=== PATIENT | female | born 1935 | race Caucasian/White ===

== ENCOUNTER 2018-05-13 15:07 | Inpatient (IN) | payer MEDICARE ==
[~2018-05-13] VITALS: Ht 160 cm; Wt 61.3 kg
--- NOTE | ~2018-05-13 | EKG ---
[address] [address] ELECTROCARDIOGRAM REPORT Name: LETY GAY Room #: 451-P ADM IN M.R.#: [id number] Admission: 05/13/18 Attend Phys: Aleksandar Fajardo MD Discharge: Date of : 33 Report #: [id number] THIS REPORT FOR: //name// [facility] Test Date: 2018-05-14 Test Time: 09:37:32 Pat Name: LETY GAY Department: Room: [facility] Gender: F [place]: [place] : 1935 Requested By: Geoff Pan Order Number: [id number] MD: Jarrod Quintanilla Measurements Intervals [place] Rate: 76 P: 52 NM: 222 QRS: 28 QRSD: 91 T: 64 QT: 378 QTc: 426 Interpretive Statements Sinus rhythm Prolonged NM interval Consider left ventricular hypertrophy Anterior Q waves, possibly due to LVH Compared to ECG 12/07/2009 07:43:03 First degree AV block now present Q waves now present Atrial premature complex(es) no longer present Myocardial infarct finding no longer present Electronically Signed On 05-14-2018 20:44:03 WIENER PACKER by Jarrod Quintanilla [email or web address] <ELECTRONICALLY SIGNED> By: Jarrod Quintanilla MD 05/14/184 6 6 Jarrod Quintanilla MD /EPI
--- NOTE | ~2018-05-13 | 2DMMODE ---
[facility] [address] [place] [address] 2 D/M-MODE ECHOCARDIOGRAM Name: LETY GAY Room #: 451-P ADM IN ..#: [id number] Admission: 05/13/18 Attend Phys: Aleksandar Fajardo MD Discharge: Date of : 33 Date of Service: 05/15/18 1256 Report #: [id number] THIS REPORT FOR: //name// APPROVED REPORT Study performed: 05/15/2018 07:44:46 EXAM: Comprehensive 2D, Doppler, and color-flow Echocardiogram Patient Location: Bedside Room #: [facility] Status: routine BSA: 1.64 HR: 72 bpm BP: 113/56 mmHg Rhythm: NSR Other Information Study Quality: Adequate Indications Systolic murmur. 2D Dimensions RVDd: 33.74 mm IVSd: 9.89 (7-11mm) LVOT Diam: 20.82 (18-24mm) LVDd: 46.25 mm PWd: 8.24 (7-11mm) Ascending Ao: 38.65 (22-36mm) LVDs: 28.84 (25-40mm) Aortic Root: 33.71 mm Volumes Left Atrial Volume (Systole) Single Plane 4CH: 51.10 mL Single Plane 2CH: 46.69 mL LA ESV Index: 32.00 mL/m2 Aortic Valve AoV Peak Kareem.: 3.16 m/s AO Peak Gr.: 39.89 mmHg LVOT Max P.09 mmHg AO Mean Gr.: 22.11 mmHg AO V2 Mean: 2.24 m/s LVOT Max V: 1.01 m/s AO V2 VTI: 69.14 cm KATT Vmax: 1.09 cm2 Mitral Valve E/A Ratio: 0.8 [facility] [place] [address] 2 D/M-MODE ECHOCARDIOGRAM Name: GAYLETY Hodgson Room #: [address] [place] [address] [place] ..#: [id number] Admission: 05/13/18 Attend Phys: Aleksandar Fajardo MD Discharge: Date of : 33 Date of Service: 05/15/18 1256 Report #: [id number] MV Decel. Time: 223.94 ms MV E Max Kareem.: 0.80 m/s MV A Kareem.: 1.00 m/s MV PHT: 64.94 ms IVRT: 96.89 ms Pulmonary Valve PV Peak Kareem.: 0.86 m/s PV Peak Gr.: 2.97 mmHg Pulmonary Vein P Vein S: 0.71 m/s P Vein A: 0.35 m/s P Vein D: 0.53 m/s P Vein A Dur.: 129.2 msec P Vein S/D Ratio: 1.34 Tricuspid Valve TR Peak Kareem.: 2.26 m/s RAP Estimate: 5.00 mmHg TR Peak Gr.: 20.42 mmHg PA Pressure: 25.00 mmHg Left Ventricle The left ventricle is normal size. There is normal LV segmental wall motion. Mild basal septal hypertrophy is present. Left ventricular systolic function is normal. LVEF is 55-60%. Mild diastolic dysfunction is present (impaired relaxation pattern). Right Ventricle The right ventricle is normal size. The right ventricular systolic function is normal. Atria Left atrium is mildly dilated. Right atrium is at the upper limits of normal. Aortic Valve Aortic valve is moderately thickened and calcified. No aortic regurgitation is present. There is moderate valvular aortic stenosis. Calculated aortic valve area is 1.1 cm2 with maximum pressure gradient of 40 mmHg and mean pressure gradient of 22 mmHg. Mitral Valve Mitral valve leaflets are mildly thickened. Mild mitral annular calcification. Mild mitral regurgitation. No evidence of mitral valve stenosis. Tricuspid Valve The tricuspid valve is normal in structure. Trace tricuspid [facility] [address] [place] [address] 2 D/M-MODE ECHOCARDIOGRAM Name: LETY GAY Room #: [address] [place] [address] [place] [facility]#: [id number] Admission: 05/13/18 Attend Phys: Aleksandar Fajardo MD Discharge: Date of : 33 Date of Service: 05/15/18 1256 Report #: [id number] regurgitation. Estimated PAP is 25mmHg. Pulmonic Valve The pulmonary valve is normal in structure. Trace pulmonic regurgitation. Great Vessels The aortic root is normal in size. The ascending aorta is mildly dilated. IVC is normal in size and collapses >50% with inspiration. Pericardium There is no pericardial effusion. <Conclusion> The left ventricle is normal size. LVEF is 55-60%. Mild diastolic dysfunction is present (impaired relaxation pattern). The right ventricle is normal size. Left atrium is mildly dilated. Right atrium is at the upper limits of normal. Aortic valve is moderately thickened and calcified. There is moderate valvular aortic stenosis. Calculated aortic valve area is 1.1 cm2 with maximum pressure gradient of 40 mmHg and mean pressure gradient of 22 mmHg. Mild mitral regurgitation. Trace tricuspid regurgitation. Estimated PAP is 25mmHg. The aortic root is normal in size. There is no pericardial effusion. <ELECTRONICALLY SIGNED> By: Cesar Galvez MD, FACC 05/15/18 1256 1256 1256 Cesar Galvez MD, FACC /INF
[~2018-05-13 15:07] MED LIST: ACCOLATE10 MG PO; ALPRAZOLAM 0.0.25 M1 PO; AMLODIPINE BESYL5 MG PO; ATIVAN0.5 MG PO; CALCITRIOL0.25 MCG PO; CALCIUM 500 +1 EAC5 PO; CENTRUM SILVER1 EAC4 PO; CIPROFLOXACIN500 M3 PO; CITRACAL + D C1 EACH PO; DIOVAN320 MG PO; DIOVAN40 MG PO; FLOVENT HFA 2220 MC1 IH; K-DUR 20 MEQ T20 MEQ PO; MUCINEX600 MG PO; NEXIUM40 MG PO; NORVASC 5 MG TAB5 MG PO; PREDNISONE 10 M10 M1 PO; PREDNISONE 5 MG5 M1 PO; PREMARIN0.625 MG PO; PROVENTIL HFA6.7 G1 INH; SAVELLA50 MG PO; SPIRIVA INH; SYNTHROID100 MCG PO; SYNTHROID112 MCG PO; SYNTHROID125 MCG PO; TUMS E.S.750 MG PO; TUMS PO; VFEND200 MG PO; XOPENEX1.25 MG/3 IH
[2018-05-13 17:20] VITALS: BP 141/76
[2018-05-14 05:50] LABS: ABSOLUTE NEUTROPHILS 7.4 thou/uL (1.4-8.2); BASOPHILS 0.2 % (0.0-2.0); EOSINOPHILS 0.1 % (0.0-3.0); HEMATOCRIT 30.6 % (37.0-47.0); HEMOGLOBIN 10.4 gm/dL (12.0-15.0); LYMPHOCYTES 9.5 % (24.0-44.0); MCH 28.8 pg (26.0-34.0); MCHC 33.8 g/dL (28.0-37.0); MCV 85.2 fL (80.0-100.0); MONOCYTES 7.1 % (1.0-8.0); PLATELET COUNT 315 thou/uL (150-400); POLYS 83.1 % (36.0-66.0); RBC 3.59 mil/uL (4.20-5.00); RDW 14.5 % (10.5-14.5); WBC 8.9 thou/uL (4.0-11.0)
[2018-05-14 06:08] LABS: ALBUMIN 2.7 g/dL (3.4-5.0); ANION GAP 11 mmol/L (7-16); BUN 7 mg/dL (7-18); CALCIUM 8.5 mg/dL (8.5-10.1); CHLORIDE 100 mmol/L (98-107); CO2 23 mmol/L (21-32); CREATININE 0.7 mg/dL (0.6-1.0); GLUCOSE 125 mg/dL (74-106); SGOT 10 U/L (15-37); SGPT 9 U/L (30-65); SODIUM 134 mmol/L (136-145); TOTAL BILIRUBIN 0.3 mg/dL (<0.1-1.0); TROPONIN-I <0.06 ng/mL (<0.06)
[2018-05-14 06:14] LABS: BE(vivo) 1.1 mmol/L (-2 to +3); HCO3 24.9 mmol/L (22.0-26.0); PCO2 36.4 mmHg (35.0-45.0); PO2 73.8 mmHg (80.0-100.0); pH 7.453 (7.360-7.450); sO2 95.6 % (92.0-98.0)
[2018-05-14 07:53] VITALS: BP 133/70
[2018-05-14] MEDS ORDERED: PREMARIN0.625 MG PO (13:20)
[2018-05-14] MEDS ORDERED: COZAAR 25 MG TA25 M1 (13:21)
[2018-05-14 14:45] VITALS: BP 120/66
[2018-05-14 20:27] VITALS: BP 132/62
[2018-05-15 04:58] VITALS: BP 113/56
[2018-05-15 06:23] LABS: HEMATOCRIT 29.9 % (37.0-47.0); HEMOGLOBIN 10.3 gm/dL (12.0-15.0); MCH 29.2 pg (26.0-34.0); MCHC 34.2 g/dL (28.0-37.0); MCV 85.2 fL (80.0-100.0); RBC 3.52 mil/uL (4.20-5.00); RDW 14.9 % (10.5-14.5); WBC 8.6 thou/uL (4.0-11.0)
[2018-05-15 06:30] LABS: APTT 28.7 Seconds (24.5-32.8); PROTIME 10.3 Seconds (9.3-11.4)
[2018-05-15 06:39] LABS: CALCIUM 8.2 mg/dL (8.5-10.1); CREATININE 0.9 mg/dL (0.6-1.0); MAGNESIUM 2.2 mg/dL (1.8-2.4); POTASSIUM 3.7 mmol/L (3.5-5.1)
[2018-05-15 07:14] VITALS: BP 113/56
[2018-05-15 14:45] VITALS: BP 131/72
[2018-05-15 19:35] VITALS: BP 136/71
[2018-05-16 08:15] VITALS: BP 146/82
[2018-05-16 11:45] VITALS: BP 143/70
[2018-05-16 16:00] VITALS: BP 119/68
[2018-05-17 03:27] VITALS: BP 161/72
[2018-05-17 07:30] VITALS: BP 149/69
[2018-05-17] MEDS ORDERED: AZITHROMYCIN 2250 MG PO (12:08)
[2018-05-17] MEDS ORDERED: KEFLEX500 M1 PO (12:08)
[2018-05-17] MEDS ORDERED: PREDNISONE 10 M10 MG PO (13:26)
[2018-05-17 13:49] VITALS: BP 149/69
== END 2018-05-17 14:31 | disposition home or self-care (01) | DRG 205 ==
LOC: 4W 15:07 → ENTRNSPT 05-17 14:26 → EDTRNSPTSTS 05-17 14:28 → 4W 05-17 14:31
PROVIDERS: Internal Medicine
PROC: 02HV33Z Insertion of Infusion Device into Superior Vena Cava, Percutaneous Approach (ICD-10-PCS; principal; 2018-05-14)
PROC: B548ZZA Ultrasonography of Superior Vena Cava, Guidance (ICD-10-PCS; principal; 2018-05-14)
DX: J98.19 Other pulmonary collapse (principal); J18.9 Pneumonia, unspecified organism; J96.21 Acute and chronic respiratory failure with hypoxia; J44.0 Chronic obstructive pulmonary disease with (acute) lower respiratory infection; K21.9 Gastro-esophageal reflux disease without esophagitis; E03.9 Hypothyroidism, unspecified; I10 Essential (primary) hypertension; I71.4 Abdominal aortic aneurysm, without rupture; J45.40 Moderate persistent asthma, uncomplicated; T17.990A Other foreign object in respiratory tract, part unspecified in causing asphyxiation, initial encounter; X58.XXXA Exposure to other specified factors, initial encounter; Y93.89 Activity, other specified; Y92.89 Other specified places as the place of occurrence of the external cause; Y99.8 Other external cause status; Z88.6 Allergy status to analgesic agent; Z91.041 Radiographic dye allergy status; Z91.040 Latex allergy status; Z88.8 Allergy status to other drugs, medicaments and biological substances; Z91.048 Other nonmedicinal substance allergy status; J45.909 Unspecified asthma, uncomplicated; Z90.49 Acquired absence of other specified parts of digestive tract; Z90.710 Acquired absence of both cervix and uterus; Z79.899 Other long term (current) drug therapy
CPT/HCPCS: 10045; 27000

== ENCOUNTER → 2018-06-29 | Outpatient (CLI) | payer MEDICARE ==
[~2018-06-29] MED LIST changes: +AZITHROMYCIN 2250 MG PO; +COZAAR 25 MG TA25 M1; +KEFLEX500 M1 PO; +PREDNISONE 10 M10 MG PO
== END ==
LOC: RAD 12:44
DX: R05 Cough (principal)